=== PATIENT | male | born 1965 | race Caucasian/White ===

== ENCOUNTER 2025-02-05 16:52 | Emergency (ER) | payer OTHER ==
[2025-02-05] MEDS ORDERED: Nitroglycerin 0.4 MG Tab.SL SL PRN (17:27)
[2025-02-05 17:43] LABS: BASE EXCESS VENOUS 2.0 mm/L; BASOPHILS ABSOLUTE AUTO 0.04 K/uL (0.00-0.10); BASOPHILS PERCENT AUTO 0.3 % (0.1-1.3); BICARBONATE,VENOUS 25.1 mmol/L; EOSINOPHILS ABSOLUTE AUTO 0.13 K/uL (0.00-0.40); EOSINOPHILS PERCENT AUTO 1.1 % (0.0-5.4); IMMATURE GRAN ABSOLUTE AUTO 0.06 K/uL (0.00-0.23); IMMATURE GRAN PERCENT AUTO 0.5 % (0.0-0.7); LYMPHOCYTES ABSOLUTE AUTO 0.92 K/uL (0.8-3.3); LYMPHOCYTES PERCENT AUTO 7.8 % (11.4-47.7); MONOCYTES ABSOLUTE AUTO 1.08 K/uL (0.20-0.90); MONOCYTES PERCENT AUTO 9.2 % (3.3-12.6); NEUTROPHILS ABSOLUTE AUTO 9.55 K/uL (1.0-7.6); NEUTROPHILS PERCENT AUTO 81.1 % (40.0-78.1); O2 SATURATION VENOUS 94.8; OXYHEMOGLOBIN 90.3 %; PCO2 VENOUS 36.1 mm/Hg; PH,VENOUS 7.455 (7.350-7.450); PLATELET COUNT,PLT 179 K/uL (130-375); PO2 VENOUS 68.8 mm/Hg; RED BLOOD CELL COUNT 4.66 M/uL (4.14-5.76); TOTAL HEMOGLOBIN 15.9 g/dL (13.5-18.0); WHITE BLOOD CELL COUNT,WBC 11.8 K/uL (3.2-11.0)
[2025-02-05] MEDS: Alum Hydrox/Mag Hydrox/Simeth 15 ML, Lidocaine 2% 15 ML PO ONE (17:58)
[2025-02-05 18:02] LABS: INR 1.0
[2025-02-05 18:14] LABS: A/G RATIO 1.0 (1.2-2.2); ALANINE AMINOTRANSFERASE,ALT 29 U/L (12-78); ASPARTATE AMNIOTRANSFERASE,AST 30 U/L (15-37); BILIRUBIN TOTAL 1.1 mg/dL (0.2-1.0); BLOOD UREA NITROGEN,BUN 11 mg/dL (7-18); CARBON DIOXIDE,CO2 26 mmol/L (21-32); CHLORIDE,CL 99 mmol/L (100-108); CREATININE 0.9 mg/dL (0.8-1.3); EST CRCL DRUG DOSING (CG) 107.16 mL/min; ESTIMATED GFR 98 mL/min (>60); GLUCOSE RANDOM 117 mg/dL (74-106); POTASSIUM,K 4.3 mmol/L (3.6-5.2); PRO B-TYPE NATRIUR PEPT,BNPPRO 165 pg/mL (5-125); PROTEIN TOTAL,TP 7.3 g/dL (6.4-8.2); SODIUM,NA 132 mmol/L (140-148); TROPONIN I HIGH SENSITIVITY 10.4 pg/mL (<=60.3)
[2025-02-05] MEDS: Metoprolol Tartrate 5 MG/5 ML SDV IVPUSH ONE (18:21)
[2025-02-05 18:22] LABS: APPEARANCE,URINE CLEAR (CLEAR); GLUCOSE,URINE NEGATIVE (NEGATIVE); OCCULT BLOOD,URINE TRACE-INTACT (NEGATIVE)
[2025-02-05] MEDS: Prochlorperazine 10 MG/2 ML SDV IVPUSH ONE (18:29)
[2025-02-05 18:32] LABS: AMPHETAMINES SCREEN, URINE NEGATIVE (NEGATIVE); METHADONE SCREEN, URINE NEGATIVE (NEGATIVE); METHAMPHETAMINES SCREEN, URINE NEGATIVE (NEGATIVE); OXYCODONE SCREEN,URINE NEGATIVE (NEGATIVE); PROPOXYPHENE SCREEN,URINE NEGATIVE (NEGATIVE); THC SCREEN,URINE 50 NG/ML NEGATIVE (NEGATIVE)
[2025-02-05 18:42] LABS: SQUAMOUS EPITHELIAL CELLS,UR NOT SEEN /HPF; UROTHELIAL CELLS,URINE NOT SEEN /HPF
[2025-02-05] MEDS: Iopamidol 755 Mg/ML 100 ML Bottle IV SCH (19:58)
== END 2025-02-05 22:10 | disposition home or self-care (01) ==
LOC: JP.ED 16:52
DX: I48.92 Unspecified atrial flutter (principal); Z79.899 Other long term (current) drug therapy
CPT/HCPCS: 36415; 71045; 71275; 80053; 80305; 80307; 81001; 82803; 83880; 84484; 85025; 85379; 85610; 93005; 96374; 99285; A9270; J0780; J3490; J7030; Q9967; 93010